=== PATIENT | female | born 1985 | race Caucasian/White ===

== ENCOUNTER 2023-03-05 18:30 | Emergency (ER) | payer OTHER ==
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
[2023-03-05 19:00] VITALS: BP 121/81; O2SAT 99
--- OUTSIDE RECORDS SUMMARY | 2023-03-05 19:19 | XMS REPORT | Continuity of Care Document ---
:1985 Author Organization [facility] t Address [address] [facility] [address] [place] [id number] Care Team Providers Name Role Phone Unavailable Unavailable Unavailable Problems This patient has no known problems. Allergies, Adverse Reactions, Alerts This patient has no known allergies or adverse reactions. Medications This patient has no known medications. Procedures This patient has no known procedures. Encounters Start End Encounter Admission Attending Care Care Encounter Source Date/Time Date/Time Type Type Clinicians Facility Department ID 2022-09-16 2022-09-16 Outpatient [facility] SFA [id number] 13:08:51 13:08:51 [id number] [address] Results This patient has no known results.
== END 2023-03-05 18:52 | disposition home or self-care (01) ==
LOC: ER 18:30
DX: Z04.3 Encounter for examination and observation following other accident (principal); V48.5XXA Car driver injured in noncollision transport accident in traffic accident, initial encounter
CPT/HCPCS: 99283